=== PATIENT | female | born 1930 | race Caucasian/White ===

== ENCOUNTER 2016-11-28 10:34 | Emergency (ER) | payer MEDICARE ==
[2016-11-28] MEDS ORDERED: BUPIVACAINE HCL/PF 0.5% 30 ML VIAL ONE (11:00)
--- NOTE | 2016-11-28 11:19 | ER NURSING DOCUMENTATION ---
Nurse's Notes [facility] Name:Michelle Galaviz Age:86 yrs Sex:Female :1930 Arrival Date:11/28/2016 Time:10:34 Bed4 Private MD: Diagnosis:Hand Laceration Presentation: 11/28 10:38 Presenting complaint: Patient states: pt was kneeling and tripped ove a log falling st forward. pt has a red lisbeth on her forehead and a skin tear to the left hand. 10:39 Transition of care: Home. st 10:39 Method Of Arrival: Private Vehicle st 10:39 Acuity: AMY 4 st Triage Assessment: 10:41 General: Appears in no apparent distress, Behavior is cooperative. Pain: Denies pain. st Neuro: Level of Consciousness is awake, alert, Oriented to person, place, time, event, Electronics Teacher are equal bilaterally Moves all extremities. Cardiovascular: No deficits noted. Respiratory: No deficits noted. Musculoskeletal: No deficits noted. Injury Description: Skin tear to the left hand. Historical: - Allergies: No known drug Allergies; - Home Meds: 1. multivitamin with minerals oral 2. insulin - PMHx: DIABETES - IDDM; - PSHx: None; - Ebola Screening: : Patient denies exposure to infectious person. Patient denies travel to an Ebola-affected area in the 21 days before illness onset. . - Immunization history: tetanus out of date; cant recall last one. - Social history: Smoking status: Patient states was never smoker of tobacco. Patient uses alcohol occasionally. Patient/guardian denies using marijuana. Screenin:42 Infectious Disease Risk None. Abuse screen: Denies threats or abuse. Denies injuries st from another. pt feels safe at home. Nutritional screening: No deficits noted. Vital Signs: 10:41 BP 153 / 87; Pulse 95; Resp 16; Pulse Ox 95% on R/A; Pain 0/10; st 10:42 BP 137 / 74; Pulse 87; Resp 20; Temp 98.4(O); Pulse Ox 98% on R/A; Weight 65.77 kg (R); arc Height 5 ft. 2 in. (157.48 cm) (R); Pain 0/10; 10:42 Body Mass Index 26.52 (65.77 kg, 157.48 cm) arc ED Course: 10:35 Patient arrived in ED. arc 10:37 Davis Curry MD is Attending Physician. tl1 10:38 Angeline Gamez RN is Primary Nurse. st 10:[address] 10:42 Valuables Remains with patient. st 11:05 Wound care was Irrigation Normal Saline dressed with absorbent tegaderm. st 11:07 [facility] is Referral Physician. tl1 Administered Medications: No medications were administered Outcome: 11:08 Discharge ordered by . tl1 11:18 Discharged to home ambulatory. st 11:18 Condition: improved 11:18 Discharge instructions given to patient, Instructed on discharge instructions, follow up and referral plans. medication usage. 11:18 Patient [address] the ED. st 0702 14:56 Discharge F/U Call: Spoke with: patient. Are you having any pain? no. Did your discharge instructions answer all of your questions? yes Have you made a f/u appointment? yes Overall Care on a scale of 1-10 with 10 being the best care, you rate our care as: Other comments: NO PROBLEMS, FU AT WOUND CLINIC Signatures: Angeline Gamez, RN Radha Reyes RN RN Davis Thompson MD MD tl1 Berta Akers, Reg Reg arc
--- NOTE | 2016-11-30 11:19 | ER PHYSICIAN DOCUMENTATION ---
Physician Documentation [facility] Name:Michelle Galaviz Age:86 yrs Sex:Female :1930 Arrival Date:11/28/2016 Time:10:34 Bed4 Private MD: Davis Espino Disposition: 11/28 12:00 Chart complete. tl1 Disposition: 11/28/16 11:08 Discharged to Home/Self Care. Impression: Hand Laceration. - Condition is Good. - Discharge Instructions: LACERATION, Hand. - Medical Reconciliation form form. - Follow up: [facility] [place] [facility]; When: 2 - 3 days; Reason: Recheck today's complaints, Continuance of care. - Problem is new. - Symptoms have improved. - Notes: Go to the wound care clinic in 2-4 days for follow up. You can leave this dressing in place until you see them. Return to the ED for concerns about worsening pain, redness, red streaks going up your arm or for any worsening or new concerns. HPI: 10:45 This 86 yrs old Female presents to ER via Private Vehicle with complaints of tl1 Fall Injury. 10:45 Onset: The symptom(s)/episode began/occurred suddenly, just prior to arrival. tl1 Associated injuries: The patient sustained dorsum of left hand. Associated signs and symptoms: The patient has no apparent associated signs or symptoms. Severity of symptoms: At their worst the symptoms were very mild. The patient has not experienced similar symptoms in the past. The patient has not recently seen a physician. She was kneeling in the garden and lost her balance , falling to her left. somehow, she sustained a skin tear to the dorsum of her left hand and she came in. She has no other complaint. she denied any preceeding h/a, spinning, sensation, lightheadedness, weakness, visual changes or speech problems. No recent N/V/D, Hematochezia or hematemesis.. Historical: - Allergies: No known drug Allergies; - Home Meds: 1. multivitamin with minerals oral 2. insulin - PMHx: DIABETES - IDDM; - PSHx: None; - Ebola Screening: : Patient denies exposure to infectious person. Patient denies travel to an Ebola-affected area in the 21 days before illness onset. . - Immunization history: tetanus out of date; cant recall last one. - Social history: Smoking status: Patient states was never smoker of tobacco. Patient uses alcohol occasionally. Patient/guardian denies using marijuana. ROS: 11:00 MS/extremity: Positive for laceration. tl1 11:00 All other systems are negative. Exam: 11:00 Constitutional: This is a well developed, well nourished patient who is awake, alert, tl1 and in no acute distress. Head/Face: Normocephalic, atraumatic. 11:00 Neck: Trachea midline, no thyromegaly or masses palpated, and no cervical tl1 lymphadenopathy. Supple, full range of motion without nuchal rigidity, or vertebral point tenderness. No Meningismus. 11:00 Chest/axilla: Palpation: tenderness, is not appreciated. 11:00 Cardiovascular: Rate: normal, Rhythm: regular, Heart sounds: normal. 11:00 Respiratory: the patient does not display signs of respiratory distress, Respirations: normal, Breath sounds: are normal. 11:00 Abdomen/GI: Palpation: abdomen is soft and non-tender. 11:00 Musculoskeletal/extremity: Extremities: grossly normal except: noted in the dorsum of left hand: L shaped skin tear, 5 cm length, superficial. 11:00 Skin: Appearance: normal except for affected area, injury, that can be described as clean, linear, irregular, skin tear, 5 cm . 11:00 Neuro: Orientation: is normal, Mentation: is normal, Memory: appropriate for stated age, Cranial nerves: grossly normal, Motor: moves all fours, Gait: is steady. Vital Signs: 10:41 BP 153 / 87; Pulse 95; Resp 16; Pulse Ox 95% on R/A; Pain 0/10; st 10:42 BP 137 / 74; Pulse 87; Resp 20; Temp 98.4(O); Pulse Ox 98% on R/A; Weight 65.77 kg (R); arc Height 5 ft. 2 in. (157.48 cm) (R); Pain 0/10; 10:42 Body Mass Index 26.52 (65.77 kg, 157.48 cm) arc Procedures: 11:00 Performed skin tear care by RN, per our protocol with absorbent tegaderm. tl1 MDM: 10:37 Patient medically screened. tl1 11:00 Data reviewed: vital signs, nurses notes, and as a result, I will discharge patient. tl1 Counseling: I had a detailed discussion with the patient and/or guardian regarding: the historical points, exam findings, and any diagnostic results supporting the discharge/admit diagnosis, the need for outpatient follow up, in the wound care clinic. Response to treatment: the patient's symptoms have mildly improved after treatment, and as a result, I will discharge patient. ED course: Skin tear care by DIAZ Marcus. Dispensed Medications: No medications were administered Signatures: Angeline Gamez RN RN st Leigh, Tom, MD MD tl1
== END 2016-11-28 11:19 | disposition home or self-care (01) ==
LOC: ER 10:34
DX: S61.412A Laceration without foreign body of left hand, initial encounter (principal); W18.39XA Other fall on same level, initial encounter; Y92.017 Garden or yard in single-family (private) house as the place of occurrence of the external cause; Y93.H2 Activity, gardening and landscaping; E11.9 Type 2 diabetes mellitus without complications; Z79.4 Long term (current) use of insulin
CPT/HCPCS: 99283